=== PATIENT | female | born 1995 ===

== ENCOUNTER 2020-11-18 09:23 | Observation (INO) | payer OTHER, SELFPAY ==
[2020-11-18] VITALS (17 sets, daily range): BP systolic 118–146; BP diastolic 60–95; PULSE 96–109; BMI 35.0
[2020-11-18 11:21] LABS: Basophils Percent Auto 0.2 % (0.2-1.2); Eosinophils Absolute Auto 0.1 K/mm3 (0-0.3); Eosinophils Percent Auto 0.6 % (0-4.4); Hematocrit 38.4 % (37.0-47.0); Hemoglobin 12.8 g/dL (12.0-15.0); Immature Granulocyte Absolute 0.05 K/mm3 (0.00-0.031); Immature Granulocyte Percent A 0.5 % (0-0.5); Lymphocytes Absolute Auto 3.13 K/mm3 (0.9-3.2); Lymphocytes Percent Auto 28.8 % (18.3-44.2); Mean Corpuscular HGB Conc 33.3 g/dl (32-36); Mean Corpuscular Hemoglobin 27.9 pg (26-34); Mean Corpuscular Volume 83.8 fl (80-100); Mean Platelet Volume 11.1 fl (7.4-10.4); Monocytes Absolute Auto 0.8 K/mm3 (0.1-0.6); Monocytes Percent Auto 6.9 % (2.6-8.5); Neutrophils Absolute Auto 6.8 K/mm3 (1.3-6.7); Platelet Count Result 212 k/mm3 (150-375); Red Blood Count 4.58 M/mm3 (4.2-5.4); Red Cell Distribution Width 12.6 % (11.5-14.5); White Blood Count 10.9 K/mm3 (4.5-10.0)
--- NOTE | 2020-11-18 11:23 | OBADM ---
This patient, Theresa Hester, admitted to the OB room OB Post 117 for observation. Patient/family oriented to hospital policies and general routines including ID bracelet, bed and alarms, visiting hours, pain management, procedures, bathroom and other care routines, personal items, smoking policy, room service/diet, and visiting hours. Patient/Family are encouraged to report perceived risks to care and to ask questions if they do not understand what they are told or what they should do.
[2020-11-18 11:29] LABS: Add Urine Microscopic? YES; Appearance Urine Cloudy (Clear); Bacteria Urine Trace /hpf; Bilirubin Urine Negative (Negative); Blood Urine Negative (Negative); Color Urine Yellow (Yellow); Glucose Urine UA Negative (Negative); Ketones Urine Negative (Negative); Leukocyte Esterase Ur 1+ LEU/UL (Negative); Nitrate Urine Negative (Negative); Protein Urine 1+ mg/dL (Negative); RBC Urine 0-2 /hpf (0-2); Specific Grav Ur 1.008 (1.001-1.035); Squamous Epithelial Cell Urine Many /hpf (Few); Urobilinogen Urine Negative mg/dL (<2.0)
[2020-11-18 11:31] LABS: Alanine Aminotransferase 12 U/L (4-35); Albumin Level 3.3 g/dL (3.5-5.1); Alkaline Phosphatase 260 U/L (38-126); Anion Gap 5 mmol/L (8-16); Aspartate Amino Transferase 25 U/L (14-36); Bilirubin,Total 0.4 mg/dL (0.2-1.3); Blood Urea Nitrogen 9 mg/dL (7-17); Calcium 9.9 mg/dL (8.4-10.2); Carbon Dioxide 21 mmol/L (22-30); Chloride 107 mmol/L (98-107); Estimated CRCL calculation 87 ml/min; Estimated Glomerular Filt Rate > 60; Glucose 91 mg/dL (65-105); Potassium 4.4 mmol/L (3.4-5.0); Sodium 133 mmol/L (137-145)
[2020-11-18] MEDS: NIFEdipine 30 MG TAB.ER.24 PO (11:49)
[2020-11-18 12:41] LABS: Creatinine Urine 68.3 mg/dL; Total Protein Urine Random 38 mg/dL; Ur Ttl Prot Creatinine Ratio 0.56 mg/mg (0-0.20)
[2020-11-18 14:45] LABS: Fetal Fibronectin Negative
--- NOTE | 2020-11-22 13:43 | P.PNOB_ITS ---
OB - Triage/Final Diagnosis Visit Information Date of evaluation: 11/18/20 Reason for evaluation: other (elevated bp) Comments/Additional reasons for admission: I have assessed the risk for this patient, Theresa Hester, and determined that she would benefit from observation care. Evaluation Laboratory results: Laboratory Tests 11/18/20 11/18/20 11/18/20 11:07 11:07 11:07 WBC 10.9 H RBC 4.58 Hgb 12.8 Hct 38.4 MCV 83.8 MCH 27.9 MCHC 33.3 RDW 12.6 Plt Count 212 MPV 11.1 H Immature Gran % (Auto) 0.5 Neut % (Auto) 63.0 Lymph % (Auto) 28.8 [place] % (Auto) 6.9 Eos % (Auto) 0.6 Baso % (Auto) 0.2 Lymph # (Auto) 3.13 [place] # (Auto) 0.8 H Eos # (Auto) 0.1 Baso # (Auto) 0.0 Abs Immat Gran (auto) 0.05 H Absolute Neuts (auto) 6.8 H Absolute Nucleated RBC 0.0 Nucleated RBC % 0.0 Sodium 133 L Potassium 4.4 Chloride 107 Carbon Dioxide 21 L Anion Gap 5 L BUN 9 Creatinine 0.90 Estim Creat Clear Calc 87 Estimated GFR > 60 Glucose 91 Uric Acid 5.0 Calcium 9.9 Total Bilirubin 0.4 AST 25 ALT 12 Alkaline Phosphatase 260 H Total Protein 6.0 L Albumin 3.3 L Urine Color Yellow Urine Appearance Cloudy H Urine pH 7.0 Ur Specific [place] 1.008 Urine Protein 1+ H Urine Glucose (UA) Negative Urine Ketones Negative Ur Blood (Man) Negative Urine Nitrate Negative Urine Bilirubin Negative Urine Urobilinogen Negative Leukocyte Esterase Rfl 1+ H Urine RBC 0-2 Urine WBC 4-6 H Ur Squamous Epith Cells Many H Urine Bacteria Trace U Random Total Protein Urine Creatinine Protein/Creat Ratio 2 Fibronectin 11/18/20 11/18/20 11:07 14:16 WBC RBC Hgb Hct MCV MCH MCHC RDW Plt Count MPV Immature Gran % (Auto) Neut % (Auto) Lymph % (Auto) [place] % (Auto) Eos % (Auto) Baso % (Auto) Lymph # (Auto) [place] # (Auto) Eos # (Auto) Baso # (Auto) Abs Immat Gran (auto) Absolute Neuts (auto) Absolute Nucleated RBC Nucleated RBC % Sodium Potassium Chloride Carbon Dioxide Anion Gap BUN Creatinine Estim Creat Clear Calc Estimated GFR Glucose Uric Acid Calcium Total Bilirubin AST ALT Alkaline Phosphatase Total Protein Albumin Urine Color Urine Appearance Urine pH Ur Specific [place] Urine Protein Urine Glucose (UA) Urine Ketones Ur Blood (Man) Urine Nitrate Urine Bilirubin Urine Urobilinogen Leukoc
--- NOTE | 2020-11-25 07:24 | PM.OBTRLD ---
OB - Triage/Final Diagnosis Visit Information Date of evaluation: 11/18/20 Reason for evaluation: threatened labor Comments/Additional reasons for admission: I have assessed the risk for this patient, Theresa Hester, and determined that she would benefit from observation care. Evaluation Laboratory results: Laboratory Tests 11/18/20 11/18/20 11/18/20 11:07 11:07 11:07 WBC 10.9 H RBC 4.58 Hgb 12.8 Hct 38.4 MCV 83.8 MCH 27.9 MCHC 33.3 RDW 12.6 Plt Count 212 MPV 11.1 H Immature Gran % (Auto) 0.5 Neut % (Auto) 63.0 Lymph % (Auto) 28.8 [place] % (Auto) 6.9 Eos % (Auto) 0.6 Baso % (Auto) 0.2 Lymph # (Auto) 3.13 [place] # (Auto) 0.8 H Eos # (Auto) 0.1 Baso # (Auto) 0.0 Abs Immat Gran (auto) 0.05 H Absolute Neuts (auto) 6.8 H Absolute Nucleated RBC 0.0 Nucleated RBC % 0.0 Sodium 133 L Potassium 4.4 Chloride 107 Carbon Dioxide 21 L Anion Gap 5 L BUN 9 Creatinine 0.90 Estim Creat Clear Calc 87 Estimated GFR > 60 Glucose 91 Uric Acid 5.0 Calcium 9.9 Total Bilirubin 0.4 AST 25 ALT 12 Alkaline Phosphatase 260 H Total Protein 6.0 L Albumin 3.3 L Urine Color Yellow Urine Appearance Cloudy H Urine pH 7.0 Ur Specific [place] 1.008 Urine Protein 1+ H Urine Glucose (UA) Negative Urine Ketones Negative Ur Blood (Man) Negative Urine Nitrate Negative Urine Bilirubin Negative Urine Urobilinogen Negative Leukocyte Esterase Rfl 1+ H Urine RBC 0-2 Urine WBC 4-6 H Ur Squamous Epith Cells Many H Urine Bacteria Trace U Random Total Protein Urine Creatinine Protein/Creat Ratio 2 Fibronectin 11/18/20 11/18/20 11:07 14:16 WBC RBC Hgb Hct MCV MCH MCHC RDW Plt Count MPV Immature Gran % (Auto) Neut % (Auto) Lymph % (Auto) [place] % (Auto) Eos % (Auto) Baso % (Auto) Lymph # (Auto) [place] # (Auto) Eos # (Auto) Baso # (Auto) Abs Immat Gran (auto) Absolute Neuts (auto) Absolute Nucleated RBC Nucleated RBC % Sodium Potassium Chloride Carbon Dioxide Anion Gap BUN Creatinine Estim Creat Clear Calc Estimated GFR Glucose Uric Acid Calcium Total Bilirubin AST ALT Alkaline Phosphatase Total Protein Albumin Urine Color Urine Appearance Urine pH Ur Specific [place] Urine Protein Urine Glucose (UA) Urine Ketones Ur Blood (Man) Urine Nitrate Urine Bilirubin Urine Urobilinogen Leukocyte Esterase Rfl Urine RBC Urine WBC Ur Squamous Epith Cells Urine Bacteria U Random Total Protein 38 Urine Creatinine 68.3 Protein/Creat Ratio 2 0.56 H Fibronectin Negative
== END 2020-11-18 15:11 | disposition home or self-care (01) ==
PROVIDERS: Advanced Practice Midwife; Admitting Provider Obstetrics & Gynecology; PCP Nurse Practitioner Family; Visit Provider Obstetrics & Gynecology
DX: O16.9 Unspecified maternal hypertension, unspecified trimester (principal); Z3A.00 Weeks of gestation of pregnancy not specified
CPT/HCPCS: 36415; 80053; 81001; 82570; 82731; 84156; 84550; 85025; A9270; G0378; G0379

== ENCOUNTER 2020-11-24 00:01 | Observation (INO) | payer OTHER, SELFPAY ==
[2020-11-24 00:17] VITALS: BP 139/98; PULSE 131
[2020-11-24 00:30] VITALS: BP 142/92; PULSE 120
[2020-11-24 00:45] VITALS: BP 136/75; PULSE 120; BMI 34.7
--- NOTE | 2020-12-25 20:49 | PM.OBTRLD ---
OB - Triage/Final Diagnosis Visit Information Comments/Additional reasons for admission: I have assessed the risk for this patient, Theresa Hester, and determined that she would benefit from observation care. Final Diagnosis (1) False labor: Code(s): O47.9 - False labor, unspecified Status: Acute
== END 2020-11-24 01:17 | disposition home or self-care (01) ==
PROVIDERS: Admitting Provider Obstetrics & Gynecology; PCP Nurse Practitioner Family; Visit Provider Obstetrics & Gynecology
DX: O47.03 False labor before 37 completed weeks of gestation, third trimester (principal); Z3A.34 34 weeks gestation of pregnancy
CPT/HCPCS: G0378; G0379

== ENCOUNTER 2020-11-27 00:22 | Inpatient (IN) | payer OTHER, SELFPAY ==
[2020-11-27] VITALS (187 sets, daily range): BP systolic 102–177; BP diastolic 68–158; PULSE 91–165; RESP 16–20; TEMP 35.7–37.1; O2SAT 78–100; BMI 34.8
--- OUTSIDE RECORDS SUMMARY | 2020-11-27 00:46 | XMS_ITS | Encounter Summary ---
:1995 Author Care Team Providers Name Role Phone Jyoti Greenberg [facility] Primary Care Provider [phone] Reason for Visit OB visit OB [id number] EDC 01/04/2021 LMP 03/30/2020 Assessment and Plan Assessment Note Patient is _34__weeks . Dis cussed plan. 1. Routine care Discussion Note: None recorded.Patient educational handouts: No information available. Plan of Care Reminders Provider Appointments Nst 11/29/2020 Nst, , EQ UIP 11:30AM ? Nst 12/02/2020 Nst, , EQUI P 9:30AM ? Ob Routine 12/02/2020 Nia Th erese 10:15AM MD Anna Marie ? Nst 12/06/2020 Nst, , EQUI P 9:30AM ? Ob Routine 12/09/2020 Iraida Loyolae, 9:15AM CNM ? Nst 12/09/2020 Nst, , EQUI P 8:30AM ? Nst 12/13/2020 Nst, , EQUI P 9:30AM ? Ob Routine 12/16/2020 Iraida Vargasgle, 10:00AM CNM ? Nst 12/16/2020 Nst, , EQUI P 9:30AM ? Nst 12/20/2020 Nst, , EQUI P 9:30AM ? Ob Routine 12/23/2020 Iraida Sagrario VargasFelipe, 11:00AM CNM ? Nst 12/23/2020 Nst, , EQUI P 10:30AM ? Nst 12/27/2020 Nst, , EQUI P
--- OUTSIDE RECORDS SUMMARY | 2020-11-27 00:46 | XMS_ITS | Encounter Summary ---
:1995 Author Care Team Providers Name Role Phone Jyoti Greenberg [facility] Primary Care Provider [phone] Reason for Visit None recorded. Assessment and Plan 1. Chronic hypertension complica ting AND/OR reason for care during ? non-stress test Discussion Note: None recorded.Patient educational handouts: No information available. Plan of Care Reminders Provider Appointments Nst 11/29/2020 Nst, , EQ UIP 11:30AM ? Nst 12/02/2020 Nst, , EQUI P 9:30AM ? Ob Routine 12/02/2020 Nia Th erese 10:15AM MD Anna Marie ? Nst 12/06/2020 Nst, , EQUI P 9:30AM ? Ob Routine 12/09/2020 Iraida Wang, 9:15AM CNM ? Nst 12/09/2020 Nst, , EQUI P 8:30AM ? Nst 12/13/2020 Nst, , EQUI P 9:30AM ? Ob Routine 12/16/2020 Iraida Wang, 10:00AM CNM ? Nst 12/16/2020 Nst, , EQUI P 9:30AM ? Nst 12/20/2020 Nst, , EQUI P 9:30AM ? Ob Routine 12/23/2020 Iraida Wang, 11:00AM CNM ? Nst 12/23/2020 Nst, , EQUI P 10:30AM ? Nst 12/27/2020 Nst, , EQUI P 9:30AM ?
--- OUTSIDE RECORDS SUMMARY | 2020-11-27 00:46 | XMS_ITS | Encounter Summary ---
:1995 Author Care Team Providers Name Role Phone Jyoti Greenberg [facility] Primary Care Provider [phone] Reason for Visit None recorded. Assessment and [...]
--- OUTSIDE RECORDS SUMMARY | 2020-11-27 00:46 | XMS_ITS ---
:1995 Author Care Team Providers Name Role Phone [facility]- Primary Care Provider [phone] Allergies Code Code System Name Reaction Severity Status Onset Penicillins Hives ? Active ? 49371 RxNorm Zofran Itching ? Active ? Vomiting ? Active ? Medications Name Status Start Date Stop Date ? ? buspirone Completed ? 10/18/2020 buspirone 10 mg tablet Active ? Not avail able TAKE 1 TABLET BY MOUTH THREE TIMES DAILY freestyle mis lancets Active ? Not herminio ilable FreeStyle Lancets 28 gauge Active ? Not a vailable FreeStyle Lite Meter kit Active ? Not herminio ilable FreeStyle Lite Strips Active ? Not availa ble gabapentin Completed 08/04/2020 10/18/2020 gabapentin 300 mg capsule Active ? Not av ailable TAKE 1 CAPSULE BY MOUTH THREE TIMES DAILY Humulin N NPH U-100 Insulin Active ? Not available (isophane susp) 100 unit/mL subcutaneous hydrocodone 5 mg-acetaminophen 325 Completed ? 10/18/2020 mg tablet ibuprofen 600 mg tablet Completed ? 10/19/19 insulin aspart U-100 100 unit/mL subcutaneous solution Active ? Not available INJECT 4 UNITS UNDER THE SKIN 10 MINUTES BEFORE BREAKFAST AND D INNER insulin syringe U-100 with needle 0.3 mL 31 gauge x 5/16 Active ? Not available USE DAILY DIRECTED insulin syringe/0.3ml/30g x 5/16 Active ? Not available 30g x 5/16 0.3 ml misc insulin syringe/0.3ml/31g x 5/16 Active ?
--- OUTSIDE RECORDS SUMMARY | 2020-11-27 00:47 | XMS_ITS | Encounter Summary ---
:1995 Author Care Team Providers Name Role Phone Jyoti Greenberg [facility] Primary Care Provider [phone] Reason for Visit OB visit OB [id number] EDC 01/04/2021 LMP 03/30/2020 Assessment and Plan Assessment Note Patient is _28__weeks . Dis cussed plan. 1. Routine care Discussion Note: None recorded.Patient educational handouts: No information available. Plan of Care Reminders Provider Appointments Nst 11/29/2020 Nst, , EQ UIP 11:30AM ? Nst 12/02/2020 Nst, , EQUI P 9:30AM ? Ob Routine 12/02/2020 Nia Th erese 10:15AM MD Anna Marie ? Nst 12/06/2020 Nst, , EQUI P 9:30AM ? Ob Routine 12/09/2020 Iraida Sagrario VargasPinch, 9:15AM CNM ? Nst 12/09/2020 Nst, , EQUI P 8:30AM ? Nst 12/13/2020 Nst, , EQUI P 9:30AM ? Ob Routine 12/16/2020 Iraida Sagrario VargasPinch, 10:00AM CNM ? Nst 12/16/2020 Nst, , EQUI P 9:30AM ? Nst 12/20/2020 Nst, , EQUI P 9:30AM ? Ob Routine 12/23/2020 Iraida Sagrario Felipe, 11:00AM CNM ? Nst 12/23/2020 Nst, , EQUI P 10:30AM ? Nst 12/27/2020 Nst, , EQUI P
--- OUTSIDE RECORDS SUMMARY | 2020-11-27 00:47 | XMS_ITS | Encounter Summary ---
:1995 Author Care Team Providers Name Role Phone Jyoti Greenberg [facility] Primary Care Provider [phone] Reason for Visit None recorded. Assessment and [...]
--- OUTSIDE RECORDS SUMMARY | 2020-11-27 00:47 | XMS_ITS | Encounter Summary ---
:1995 Author Care Team Providers Name Role Phone Jyoti Greenberg [facility] Primary Care Provider [phone] Reason for Visit OB visit Assessment and Plan Assessment Note Patient is ___weeks . Discu ssed plan. 1. Routine care Discussion Note: None [...] P 9:30AM ? Ob Routine 12/16/2020 Iraida Loyolae, 10:00AM CNM ? Nst 12/16/2020 Nst, , EQUI P 9:30AM ? Nst 12/20/2020 Nst, , EQUI P 9:30AM ? Ob Routine 12/23/2020 Iraida Wang, 11:00AM CNM ? Nst 12/23/2020 Nst, , EQUI P 10:30AM ? Nst 12/27/2020 Nst, , EQUI P 9:30AM ? O
--- OUTSIDE RECORDS SUMMARY | 2020-11-27 00:47 | XMS_ITS | Encounter Summary ---
:1995 Author Care Team Providers Name Role Phone Jyoti Greenberg [facility] Primary Care Provider [phone] Reason for Visit None recorded. Assessment and [...]
--- OUTSIDE RECORDS SUMMARY | 2020-11-27 00:47 | XMS_ITS | Encounter Summary ---
:1995 Author Care Team Providers Name Role Phone Jyoti Greenberg [facility] Primary Care Provider [phone] Reason for Visit None recorded. Assessment and [...]
--- OUTSIDE RECORDS SUMMARY | 2020-11-27 00:47 | XMS_ITS | Encounter Summary ---
:1995 Author Care Team Providers Name Role Phone Jyoti Greenberg [facility]- Primary Care Provider [phone] Reason for Visit None recorded. Assessment and Plan 1. condition affecting obs tetrical care of mother ? US, obstetric, biophysical profile + non-stress test Discussion Note: None recorded.Patient educational handouts: No information available. Plan of Care Reminders Provider Appointments Nst 11/29/2020 Nst, , EQ UIP 11:30AM ? Nst 12/02/2020 Nst, , EQUI P 9:30AM ? Ob Routine 12/02/2020 Nia Th erese 10:15AM MD Anna Marie ? Nst 12/06/2020 Nst, , EQUI P 9:30AM ? Ob Routine 12/09/2020 Iraida E 9:15AM Felipe, CNM ? Nst 12/09/2020 Nst, , EQUI P 8:30AM ? Nst 12/13/2020 Nst, , EQUI P 9:30AM ? Ob Routine 12/16/2020 Iraida E 10:00AM Felipe, CNM ? Nst 12/16/2020 Nst, , EQUI P 9:30AM ? Nst 12/20/2020 Nst, , EQUI P 9:30AM ? Ob Routine 12/23/2020 Iraida E 11:00AM Felipe, CNM ? Nst 12/23/2020 Nst, , EQUI P 10:30AM
--- OUTSIDE RECORDS SUMMARY | 2020-11-27 00:47 | XMS_ITS | Encounter Summary ---
:1995 Author Care Team Providers Name Role Phone Jyoti Greenberg [facility] Primary Care Provider [phone] Reason for Visit OB visit OB [id number] EDC 01/04/2021 LMP 03/30/2020 Assessment and Plan Assessment Note Patient is ___weeks . Discu ssed plan. Discussion Note: None recorded.Patient educational handouts: No [...] P 9:30AM ? Ob Routine 12/23/2020 Iraida Loyolae, 11:00AM CNM ? Nst 12/23/2020 Nst, , EQUI P 10:30AM ? Nst 12/27/2020 Nst, , EQUI P 9:30AM ? Ob Routin
--- OUTSIDE RECORDS SUMMARY | 2020-11-27 00:48 | XMS_ITS | Encounter Summary ---
:1995 Author Care Team Providers Name Role Phone Jyoti Greenberg [facility] Primary Care Provider [phone] Reason for Visit OB visit Assessment and [...]
--- OUTSIDE RECORDS SUMMARY | 2020-11-27 00:48 | XMS_ITS | Encounter Summary ---
:1995 Author Care Team Providers Name Role Phone Jyoti Greenberg [facility] Primary Care Provider [phone] Reason for Visit OB visit OB [id number] EDC 01/04/2021 LMP 03/30/2020 Assessment and Plan Assessment Note Patient is _21__weeks . Dis cussed plan. 1. Routine care Discussion Note Additional precautionary measures w ere taken to minimize potential exposure to the Covid-19 virus during this patient?s visit, including available hand home care liaison upon arrive, temperature check and being asked a series of screening questions. All staff wore face coverings during this en counter, as well as provided additional cleaning and sanitizing of all surfaces, including countertops, pens, chairs, door handles, light switches, etc, prior to a nd following the patient?s visit. Patient educational handouts: No information available. Plan of Care Reminders Provider Appointments Nst 11/29/2020 Nst, , EQ UIP 11:30AM ? Nst 12/02/2020 Nst, , EQUI P 9:30AM ? Ob Routine 12/02/2020 Nia Cortez erese 10:15AM MD Anna Marie ? Nst 12/06/2020 Nst, , EQUI P 9:30AM ? Ob Routine 12/09/2020 Iraida Wang, 9:15AM CNM ? Nst 12/09/2020 Nst, , EQUI P 8:30AM ? Nst 12/13/2020 Nst, , EQUI P 9:30AM ? Ob Routine 12/16/2020 S
--- OUTSIDE RECORDS SUMMARY | 2020-11-27 00:48 | XMS_ITS | Encounter Summary ---
:1995 Author Care Team Providers Name Role Phone Jyoti Greenberg [facility]- Primary Care Provider [phone] Reason for Visit None recorded. Assessment and Plan 1. Reduced movement ? US, obstetric, follow-up Discussion Note: None recorded.Patient educational handouts: No [...] , EQUI P 9:30AM ? Ob Routine 12/30/2020 Iraida Wang,
[2020-11-27 01:03] LABS: Basophils Percent Auto 0.2 % (0.2-1.2); Eosinophils Absolute Auto 0.1 K/mm3 (0-0.3); Hematocrit 37.6 % (37.0-47.0); Hemoglobin 12.6 g/dL (12.0-15.0); Immature Granulocyte Absolute 0.05 K/mm3 (0.00-0.031); Immature Granulocyte Percent A 0.6 % (0-0.5); Lymphocytes Absolute Auto 3.05 K/mm3 (0.9-3.2); Mean Corpuscular HGB Conc 33.5 g/dl (32-36); Mean Corpuscular Hemoglobin 28.2 pg (26-34); Mean Corpuscular Volume 84.1 fl (80-100); Mean Platelet Volume 11.7 fl (7.4-10.4); Monocytes Absolute Auto 0.6 K/mm3 (0.1-0.6); Monocytes Percent Auto 7.4 % (2.6-8.5); Neutrophils Absolute Auto 4.2 K/mm3 (1.3-6.7); Neutrophils Percent Auto 52.8 % (45.5-73.1); Platelet Count Result 202 k/mm3 (150-375); Red Blood Count 4.47 M/mm3 (4.2-5.4); Red Cell Distribution Width 13.1 % (11.5-14.5)
[2020-11-27] MEDS: LACTATED RINGERS 1,000 ML 125 ML IV CONT ×3 (01:03→10:56)
[2020-11-27] MEDS: CLINDAMYCIN 900 MG/D5W 50 ML 900 MG/50 ML PIGGYBACK 50 MG IVPB ×2 (01:04→09:03)
--- NOTE | 2020-11-27 01:11 | LDADM ---
This patient, Theresa Hester, was admitted to Labor/Delivery/Recovery 105 on 11/27/20 at 00:22. Plans for labor, pain management and were discussed with patient. Patient/family oriented to hospital policies and general routines including ID bracelet, bed and alarms, visiting hours, pain management, procedures, bathroom and other care routines, personal items, smoking policy, room service/diet and guest tray routines, infant security routines, and visiting hours. Patient/Family are encouraged to report perceived risks to care and to ask questions if they do not understand what they are told or what they should do. See OBIX for further documentation.
[2020-11-27 01:16] LABS: Uric Acid 4.6 mg/dL (2.5-7.5)
[2020-11-27 01:18] LABS: Potassium 4.1 mmol/L (3.4-5.0)
[2020-11-27 01:26] LABS: Alanine Aminotransferase 12 U/L (4-35); Albumin Level 3.3 g/dL (3.5-5.1); Alkaline Phosphatase 284 U/L (38-126); Anion Gap 6 mmol/L (8-16); Aspartate Amino Transferase 25 U/L (14-36); Bilirubin,Total 0.2 mg/dL (0.2-1.3); Blood Urea Nitrogen 11 mg/dL (7-17); Carbon Dioxide 20 mmol/L (22-30); Chloride 107 mmol/L (98-107); Estimated Glomerular Filt Rate > 60; Glucose 108 mg/dL (65-105); Sodium 133 mmol/L (137-145)
[2020-11-27] MEDS: fentaNYL CITRATE INJ (*CRX) 100 MCG/2 ML VIAL 50 MCG IV PUSH (01:59)
--- NOTE | 2020-11-27 02:59 | WPDANESEPP ---
Anes - Eval Pre Procedure Procedure: Labor epidural Date/Time: 11/27/20 02:59 Surgeon: Clara Preop Diagnosis: Abd pain with contractions Pre Op Diagnosis: Leaking, CTX Patient Data Age: 25 Gender: F Height: 5 ft 2 in Weight: 86.4 kg Last Vital Signs Temp 98.7 F 11/27/20 01:07 Pulse 112 H 11/27/20 02:32 Resp 20 11/27/20 01:07 BP 146/102 H 11/27/20 02:32 Allergies Allergy/AdvReac Type Severity Reaction Status Date / Time Penicillins Allergy Hives Verified 11/18/20 11:51 ondansetron [From Zofran] AdvReac Nausea and Verified 11/18/20 11:51 Vomiting Home Medications Medication Instructions Recorded Confirmed Type Novolog U-100 Insulin aspart 12 unit SUBCUT QACBREAK 11/27/20 11/27/20 History Novolog U-100 Insulin aspart 12 unit SUBCUT QACLUNCH 11/27/20 11/27/20 History Novolog U-100 Insulin aspart 16 unit SUBCUT QACDINNER 11/27/20 11/27/20 History gabapentin [Neurontin] 300 mg PO TID 11/27/20 11/27/20 History insulin NPH isoph U-100 human 20 unit SUBCUT QAM 11/27/20 11/27/20 History [Humulin N NPH U-100 Insulin] insulin NPH isoph U-100 human 26 unit SUBCUT HS 11/27/20 11/27/20 History [Humulin N NPH U-100 Insulin] metoprolol succinate [Toprol XL] 50 mg PO DAILY 11/27/20 11/27/20 History venlafaxine [Effexor XR] 300 mg PO DAILY 11/27/20 11/27/20 History Laboratory Tests 11/27/20 11/27/20 11/27/20 00:57 00:57 00:57 WBC 8.0 K/mm3 K/mm3 (4.5-10.0) RBC 4.47 M/mm3 M/mm3 (4.2-5.4) Hgb 12.6 g/dL g/dL (12.0-15.0) Hct 37.6 % % (37.0-47.0) MCV 84.1 fl fl (80-100) MCH 28.2 pg pg (26-34) MCHC 33.5 g/dl g/dl (32-36) RDW 13.1 % % (11.5-14.5) Plt Count 202 k/mm3 k/mm3 (150-375) MPV 11.7 fl H fl (7.4-10.4) Immature Gran % (Auto) 0.6 % H % (0-0.5) Neut % (Auto) 52.8 % % (45.5-73.1) Lymph % (Auto) 38.0 % % (18.3-44.2) [place] % (Auto) 7.4 % % (2.6-8.5) Eos % (Auto) 1.0 % % (0-4.4) Baso % (Auto) 0.2 % % (0.2-1.2) Lymph # (Auto) 3.05 K/mm3 K/mm3 (0.9-3.2) [place] # (Auto) 0.6 K/mm3 K/mm3 (0.1-0.6) Eos # (Auto) 0.1 K/mm3 K/mm3 (0-0.3) Baso # (Auto) 0.0 K/mm3 K/mm3 (0.0-0.1) Abs Immat Gran (auto) 0.05 K/mm3 H K/mm3 (0.00-0.031) Absolute Neuts (auto) 4.2 K/mm3 K/mm3 (1.3-6.7) Absolute Nucleated RBC 0.0 K/mm3 K/mm3 (0.0-0.012) Nucleated RBC % 0.0 % % (0.0-0.2) Sodium Potassium Chloride Carbon Dioxide Anion Gap BUN Creatinine Estim Creat Clear Calc Estimated GFR Glucose Uric Acid 4.6 mg/dL mg/dL (2.5-7.5) Calcium Total Bilirubin AST ALT Alkaline Phosphatase Total Protein Albumin RPR Pending Blood Type Antibody Screen 11/27/20 11/27/20 00:57 00:57 WBC RBC Hgb Hct MCV MCH MCHC RDW Plt Count MPV Immature Gran % (Auto) Neut % (Auto) Lymph % (Auto) [place] % (Auto) Eos % (Auto) Baso % (Auto) Lymph # (Auto) [place] # (Auto) Eos # (Auto) Baso # (Auto) Abs Immat Gran (auto) Absolute Neuts (auto) Absolute Nucleated RBC Nucleated RBC % Sodium 133 mmol/L L mmol/L (137-145) Potassium 4.1 mmol/L mmol/L (3.4-5.0) Chloride 107 mmol/L mmol/L (98-107) Carbon Dioxide 20 mmol/L L mmol/L (22-30) Anion Gap 6 mmol/L L mmol/L (8-16) BUN 11 mg/dL mg/dL (7-17) Creatinine 0.90 mg/dL mg/dL (0.7-1.0) Estim Creat Tonya
[2020-11-27 05:07] LABS: Glucose Point of Care 86 (65-105)
[2020-11-27 09:08] LABS: Glucose Point of Care 62 (65-105)
[2020-11-27] MEDS: OXYTOCIN 30 UNITS/NS 500 ML 30 UNITS/500 ML BAG 999 UNITS IV CONT (12:19)
--- NOTE | 2020-11-27 13:07 | WPDOBADMIT ---
Obstetrics - Admit Note Admission Note: 25y/o G1 @ 34w4d here with spontaneous rupture of membranes. Please see for complications. Expectant management and prophylactic antibiotics. record reviewed. No pertinent additions to the history and/or any subsequent changes in the physical findings that are not consistent with the expected course of the were found. Additions to the history and/or subsequent changes in the physical findings follow. None.
--- NOTE | 2020-11-27 13:08 | P.PCNOB_ITS ---
OB - Delivery Note Procedure Delivery date: 11/27/20 events: Labor < 37 Weeks, Gestational Diabetes and Induced HTN Intrapartal events: None Induction method: none Delivery monitor: external FHT and external uterine Route of delivery: Episiotomy description: None Laceration Description: None Quantitative Blood Loss (ml): 146 Anesthesia type: Epidural Narrative: delivered and placed on maternal abdomen. Peds present. Cord gasses collected and handed off to staff. [place] Baby Date of : 11/27/20 Time of : 12:44 Weeks of gestation at delivery: 34 Infant gender: Male Weight (pounds): 6 Weight (ounces): 7 presentation: vertex position: Left Occiput Anterior Placenta delivery description: Spontaneous Narrative: Awaiting apgars from nursery staff.
[2020-11-27] MEDS: OXYTOCIN 30 UNITS/NS 500 ML 30 UNITS/500 ML BAG 125 UNITS IV CONT (13:26)
[2020-11-27] MEDS: BENZOCAINE 20% AER SPR (*SP) 56 GM CAN 1 SPRAY TOPICAL (15:31)
[2020-11-27] MEDS: WITCH HAZEL 40 PADS 1 PAD TOPICAL (15:31)
[2020-11-27] MEDS: IBUPROFEN 600 MG TABLET PO ×2 (17:00→22:26)
[2020-11-27] MEDS: GABAPENTIN 300 MG CAPSULE PO (22:27)
[2020-11-27] MEDS: VENLAFAXINE HCL XR 75 MG CAP.ER.24H 300 MG PO (22:27)
[2020-11-28 05:00] VITALS: BP 135/89; PULSE 111; RESP 16; TEMP 36; O2SAT 100
[2020-11-28] MEDS: IBUPROFEN 600 MG TABLET PO ×3 (05:01→21:12)
[2020-11-28 05:15] LABS: Hematocrit 28.8 % (37.0-47.0); Hemoglobin 9.3 g/dL (12.0-15.0)
[2020-11-28 05:18] LABS: Glucose Point of Care 95 (65-105)
[2020-11-28] MEDS: GABAPENTIN 300 MG CAPSULE PO ×3 (06:31→21:15)
[2020-11-28 07:05] VITALS: BP 138/97; PULSE 97; RESP 16; TEMP 36.6
--- NOTE | 2020-11-28 07:36 | WPDANLDPN2 ---
Anes-Prog Note L&D Date/Time: 11/28/20 07:36 Comfortable throughout: labor and delivery Neuraxial method: epidural Epidural/Spinal procedure site: clean & non-tender Neuro status: Neuro function grossly intact. Cardiovascular status: normal Respiratory status: normal Airway patency: baseline Mental status: baseline Post-Op hydration status: normal Vital Signs: Last Vital Signs Temp 36.6 C 11/28/20 07:05 Pulse 97 11/28/20 07:05 Resp 16 11/28/20 07:05 BP 138/97 H 11/28/20 07:05 Pulse Ox 100 11/28/20 05:00 Pain score (VAS): 0 I/O: Intake & Output 11/27/20 11/27/20 11/28/20 15:59 23:59 07:59 Intake Total 2049 Output Total 293 Balance 2049 - Post-procedural complaints: none Patient feedback: Patient satisfied with anesthetic care.
--- NOTE | 2020-11-28 07:40 | P.PNOB_ITS ---
OB - PN: Subj Subjective Date/time seen: 11/28/20 07:41 Patient comments: no complaints baby status: doing well OB - PN: Obj Data Labs CBC & Chem 7: 11/28/20 05:09 11/27/20 00:57 Labs: Laboratory Results - last 24 hr 11/27/20 11/28/20 11/28/20 09:01 05:09 05:15 Hgb 9.3 L D Hct 28.8 L POC Capillary Glucose 62 L 95 OB - PN A/P Plan day: 1 Plan: routine care Time Spent With Patient Time: Total time spent is greater than 50% in coordination of care (as documented) at patient's floor/unit and/or counseling patient: Time with patient: less than 15 minutes Review of Systems Review of Systems: All systems reviewed & are unremarkable except as noted in HPI and below Exam Narrative: Exam Narrative: Fundus firm and vaginal flow controlled. No lower ext redness, warmth, or edema. Negative homans. Denies h/a, v/d or e/p. Reflexes normal. Const: General: comfortable Chest: Breast/axilla inspection: normal inspection of the breasts Resp: Effort & Inspection: normal respiratory effort Cardio: Rate: regular rate GI: GI Palp: Yes Soft to palpation Psych: Appearance: grossly normal Affect: normal affect Attitude: coop erative Thought content: Yes Normal thought content present Judgement: Good judgement present (Psych)
[2020-11-28 09:50] VITALS: PULSE 97
[2020-11-28] MEDS: METOPROLOL SUCCINATE EXT REL 50 MG TABCR PO (09:50)
[2020-11-28] MEDS: DOCUSATE SODIUM 100 MG CAPSULE PO ×2 (09:50→17:27)
[2020-11-28] MEDS: MULTIVIT/MIN/PREN/FOL AC/IRON TABLET 1 TAB PO (09:50)
[2020-11-28] MEDS: POLYSACCHARIDE IRON COMPLEX 150 MG CAPSULE PO ×2 (09:50→17:28)
[2020-11-28 11:30] LABS: Rapid Plasma Reagin Non-Reactive (NonReactive)
--- NOTE | 2020-11-28 13:30 | PC.NURSE ---
Consult with pt., mother is pumping due to infant in Level II status. Reviewed breast pump care and usage, pumping schedule, nipple care, and collection and storage of breast milk. Encouraged [id number], breast massage and manual expression to stimulate supply. Assessed patient for correct flange size, placement and draw. Patient verbalizes and demonstrates understanding of instructions. Discussed and the 34 4/7 week , establishing may have its own unique set of circumstances due to their immaturity. infants may be less alert, have less stamina and may have issues with latch, suck and swallow. Reviewed mother may have to continue to pump for several days until will have the strength to empty breast.
[2020-11-28 16:24] VITALS: BP 141/93; PULSE 108; RESP 16; TEMP 36.9; O2SAT 99
[2020-11-28 16:26] VITALS: PULSE 108; RESP 16; O2SAT 99
[2020-11-28 20:07] VITALS: BP 113/73; PULSE 110; RESP 16; TEMP 37; O2SAT 96; O2SAT 99
[2020-11-28] MEDS: VENLAFAXINE HCL XR 75 MG CAP.ER.24H 300 MG PO (21:14)
[2020-11-29] MEDS: GABAPENTIN 300 MG CAPSULE PO ×3 (05:07→17:16)
[2020-11-29] MEDS: IBUPROFEN 600 MG TABLET PO ×4 (05:07→23:12)
[2020-11-29 08:00] VITALS: BP 142/98; PULSE 108; PULSE 116; RESP 18; TEMP 36.6
--- NOTE | 2020-11-29 08:10 | PM.OBPNVD ---
OB - PN: Subj Subjective Date/time seen: 11/29/20 08:10 Patient comments: no complaints baby status: doing well OB - PN: Obj Data Labs CBC & Chem 7: 11/28/20 05:09 11/27/20 00:57 Labs: Laboratory Results - last 24 hr 11/27/20 00:57 RPR Non-reactive OB - PN A/P Plan day: 2 Plan: discharge home (F/U in 1 week for bp check) Comments: Visit/exam by Hermelinda CARR. Will check cbc d/t slightly elevated maternal hr and low h&h. Await results. Pt does desire discharge home. Will await lab results. Time Spent With Patient Time: Total time spent is greater than 50% in coordination of care (as documented) at patient's floor/unit and/or counseling patient: Time with patient: less than 15 minutes Review of Systems Review of Systems: All systems reviewed & are unremarkable except as noted in HPI and below Exam Narrative: Exam Narrative: Fundus firm and vaginal flow controlled. No lower ext redness, warmth, or edema. Negative homans. Denies h/a, v/d or e/p. Reflexes normal. Const: General: comfortable Chest: Breast/axilla inspection: normal inspection of the breasts Resp: Effort & Inspection: normal respiratory effort Cardio: Rate: regular rate GI: GI Palp: Yes Soft to palpation Psych: Appearance: grossly normal Affect: normal affect Attitude: cooperative Thought content: Yes Normal thought content present Judgement: Good judgement present (Psych)
[2020-11-29 10:02] VITALS: PULSE 98
[2020-11-29] MEDS: BENZOCAINE 20% AER SPR (*SP) 56 GM CAN 1 SPRAY TOPICAL (10:02)
[2020-11-29] MEDS: METOPROLOL SUCCINATE EXT REL 50 MG TABCR PO (10:02)
[2020-11-29] MEDS: POLYSACCHARIDE IRON COMPLEX 150 MG CAPSULE PO ×2 (10:03→17:17)
[2020-11-29] MEDS: SIMETHICONE 80 MG TAB.CHEW PO (10:03)
[2020-11-29] MEDS: DOCUSATE SODIUM 100 MG CAPSULE PO ×2 (10:03→17:16)
[2020-11-29] MEDS: MULTIVIT/MIN/PREN/FOL AC/IRON TABLET 1 TAB PO (10:03)
[2020-11-29] MEDS: WITCH HAZEL 40 PADS 1 PAD TOPICAL (10:04)
[2020-11-29 10:34] LABS: Hematocrit 30.7 % (37.0-47.0); Mean Corpuscular HGB Conc 32.6 g/dl (32-36); Mean Corpuscular Hemoglobin 28.1 pg (26-34); Mean Corpuscular Volume 86.2 fl (80-100); Mean Platelet Volume 11.4 fl (7.4-10.4); Platelet Count Result 234 k/mm3 (150-375); Red Blood Count 3.56 M/mm3 (4.2-5.4); Red Cell Distribution Width 13.7 % (11.5-14.5)
[2020-11-29 12:48] VITALS: BP 136/94; PULSE 100; RESP 20; TEMP 36.8
--- NOTE | 2020-11-29 13:25 | PC.NURSE ---
Mother called out for assist with feeding. This is mother's first attempt with infant out of Level II, mother has attempted once while in Level II without success. Reviewed infant feeding cues, frequencies, duration of feedings, feeding elimination flow sheet, and signs of adequate intake. Demonstrated stimulation techniques to wake infant for feeding. Assisted with infant to breast. Reviewed positioning/alignment in cross cradle, holding breast in U hold and guided asymmetrical latch on. was eagerly rooting and able to latch correctly. nursed eagerly, with steady draws and occasional swallowing noted for short bursts and would release latch. Within a few seconds was rooting and looking make eager attempts to latch repeating bursts and releasing latch. Reviewed signs of a correct latch, effective nursing and suck swallow ratio. Reviewed infants may be less alert, have less stamina and may have issues with latch, maintaining latch, suck and swallow. With the possible inability to have a vigorous suck swallow, infants may not be adequately stimulating mother and/or able to have adequate milk transfer. Advised to continue attempt each feeding for 5-10 minutes , then follow with bottle feeding at least the same amount he was receiving in nurserly and mother will pump. Nipple care reviewed. Instructed mother to call out for RN assistance if she is unable to latch for feeding or she has discomfort with nursing. Instructed feeding should be initiated three hours from start of last feeding or if feeding cues are noted before. Mother voiced understanding of information shared.
--- NOTE | 2020-11-29 15:21 | PC.NURSE ---
Janice Sigala CNM notified of pt. bloodwork and blood pressures. Informed that pt. will be staying an additional night due to gestational hypertension.
[2020-11-29 16:00] VITALS: BP 138/92; PULSE 98; RESP 18; TEMP 36.6
[2020-11-29 18:30] VITALS: BP 148/83; PULSE 103; RESP 18; TEMP 36.7; O2SAT 99
[2020-11-29] MEDS: VENLAFAXINE HCL XR 75 MG CAP.ER.24H 300 MG PO (21:29)
[2020-11-29 23:18] VITALS: BP 136/88; PULSE 103; RESP 18; TEMP 36.9; O2SAT 99
[2020-11-30 04:10] VITALS: BP 139/80; PULSE 94; RESP 20; TEMP 36.6; O2SAT 100
[2020-11-30] MEDS: GABAPENTIN 300 MG CAPSULE PO (05:29)
[2020-11-30] MEDS: IBUPROFEN 600 MG TABLET PO ×2 (05:29→11:48)
--- NOTE | 2020-11-30 07:31 | PM.OBPNVD ---
OB - PN: Subj Subjective Date/time seen: 11/30/20 07:31 Patient comments: no complaints baby status: doing well OB - PN: Obj Data Labs CBC & Chem 7: 11/29/20 10:11 11/27/20 00:57 Labs: Laboratory Results - last 24 hr 11/29/20 10:11 WBC 12.0 H RBC 3.56 L Hgb 10.0 L Hct 30.7 L MCV 86.2 MCH 28.1 MCHC 32.6 RDW 13.7 Plt Count 234 MPV 11.4 H OB - PN A/P Plan day: 3 Plan: routine care and discharge home Comments: pt had 3 day pp course due to gestational diabetes, and HTN Time Spent With Patient Time: Total time spent is greater than 50% in coordination of care (as documented) at patient's floor/unit and/or counseling patient: Review of Systems Review of Systems: All systems reviewed & are unremarkable except as noted in HPI and below Exam Const: General: cooperative Orientation/consciousness: patient oriented x3 Limitations: no limitations Psych: Affect: normal affect Attitude: cooperative Thought process: Normal thought process present Thought content: Yes Normal thought content present Insight: Good insight present (Psych) Judgement: Good judgement present (Psych)
--- NOTE | 2020-11-30 07:35 | P.DS_ITS ---
DS: Admitting Diagnosis Admitting Diagnosis Admitting Diagnosis: HTN, PPROM< GDM OB - DS: Summary OB Procedures : None OB Procedures Intrapartum: Spontaneous Vag Delivery OB Procedures: : None Time Spent with Patient Time attestation: Total time spent providing and/or coordinating discharge services: DS: Data Data Completed and Pending Pending studies at discharge: Pending at discharge 11/27/20 12:53 Surgical [PTH] Routine Labs on day of discharge: Labs from last 24 hours 11/29/20 10:11 WBC 12.0 H RBC 3.56 L Hgb 10.0 L Hct 30.7 L MCV 86.2 MCH 28.1 MCHC 32.6 RDW 13.7 Plt Count 234 MPV 11.4 H Discharge Plan Discharge Attending physician on discharge: Libra Elizabeth Discharging Clinician: Iraida Wang Patient Disposition: Home, Self-Care Activity: pelvic rest Diet: regular Patient Instructions: Antibiotic Form Stand Alone Forms: General Discharge Information Follow-up/Referrals: Claire Sigala CNM [Certified Nurse Heavy Duty Truck Mechanic] - 1 Week Discharge Medications: Continued metoprolol succinate [Toprol XL] 50 mg tablet extended release 24 hr 50 mg PO DAILY RF: 0 venlafaxine [Effexor XR] 150 mg capsule,extended release 24hr 300 mg PO DAILY RF: 0 gabapentin [Neurontin] 300 mg capsule 300 mg PO TID RF: 0 Discontinued Humulin N NPH U-100 Insulin 100 unit/mL suspension 20 unit SUBCUT QAM RF: 0 Humulin N NPH U-100 Insulin 100 unit/mL suspension 26 unit SUBCUT HS RF: 0 Novolog U-100 Insulin aspart 16 unit subcut QACDINNER RF: 0 Novolog U-100 Insulin aspart 12 unit subcut QACBREAK RF: 0 Novolog U-100 Insulin aspart 12 unit subcut QACLUNCH RF: 0 Date of admission: 11/27/20 00:22 Primary Care Provider: Dionicio,Jyoti Admitting Provider: Libra Elizabeth Attending physician on admission: Libra Elizabeth Condition: Stable
--- NOTE | 2020-11-30 07:38 | P.DS_ITS ---
DS: Admitting Diagnosis Admitting Diagnosis Admitting Diagnosis: PPROM, GHTN,GDM OB - DS: Summary OB Procedures : None OB Procedures Intrapartum: Spontaneous Vag Delivery and Other OB Procedures: : None Time Spent with Patient Time attestation: Total time spent providing and/or coordinating discharge services: DS: Data Data Completed and Pending Pending studies at discharge: Pending at discharge 11/27/20 12:53 Surgical [PTH] Routine Labs on day of discharge: Labs from last 24 hours 11/29/20 10:11 WBC 12.0 H RBC 3.56 L Hgb 10.0 L Hct 30.7 L MCV 86.2 MCH 28.1 MCHC 32.6 RDW 13.7 Plt Count 234 MPV 11.4 H Discharge Plan Discharge Attending physician on discharge: Libra Elizabeth Discharging Clinician: Iraida Wang Patient Disposition: Home, Self-Care Activity: pelvic rest Diet: regular Patient Instructions: Antibiotic Form Stand Alone Forms: General Discharge Information Follow-up/Referrals: Claire Sigala CNM [Certified Nurse Fitter Tacker] - 1 Week Discharge Medications: Continued metoprolol succinate [Toprol XL] 50 mg tablet extended release 24 hr 50 mg PO DAILY RF: 0 venlafaxine [Effexor XR] 150 mg capsule,extended release 24hr 300 mg PO DAILY RF: 0 gabapentin [Neurontin] 300 mg capsule 300 mg PO TID RF: 0 Discontinued Humulin N NPH U-100 Insulin 100 unit/mL suspension 20 unit SUBCUT QAM RF: 0 Humulin N NPH U-100 Insulin 100 unit/mL suspension 26 unit SUBCUT HS RF: 0 Novolog U-100 Insulin aspart 16 unit subcut QACDINNER RF: 0 Novolog U-100 Insulin aspart 12 unit subcut QACBREAK RF: 0 Novolog U-100 Insulin aspart 12 unit subcut QACLUNCH RF: 0 Date of admission: 11/27/20 00:22 Primary Care Provider: Dionicio,Jyoti Admitting Provider: Libra Elizabeth Attending physician on admission: Libra Elizabeth Condition: Stable
[2020-11-30 09:15] VITALS: PULSE 72; RESP 16; O2SAT 98
[2020-11-30 10:00] VITALS: BP 129/84; PULSE 113; RESP 16; TEMP 36.8; O2SAT 98
--- NOTE | 2020-11-30 10:30 | PC.NURSE ---
Consult with pt., mother reports she has continued to attempt infant to breast for most feedings. makes attempts to latch some attempts more eager than others. Assured mother this is normal and may be a few weeks before infant is independently latching. She continues to pump every three hours, milk is now in, pumping up to 25mls the last few sessions. Reviewed to give at least 25 mls EBM/formula each feeding and increasing as desires. Mother has a double electric pump for home use and is pumping without difficulties or discomfort. Mother has many questions as to when infant may discontinue to bottle feed. Discussed should continue to be bottle feed each feeding until observed and a pre/post weight done. Mother voices understanding to all. Mother able to independently latch with appropriate positioning/alignment. She denies any nipple discomfort, is feeding as required and waking infant to feed if needed. will make eager attempts for most feedings and then supplement after, and is currently meeting outcomes for weight, output, jaundice and feeding frequencies. Mother states she feels confident to continue current feeding plan above at home. Reviewed transition to breast milk, signs of adequate intake, and engorgement/relief. Instructed to call ICP if intake/output less than required. Reviewed regular medications mother is taking. Information provided per Florina. Reviewed community resources on the [employer] website and in the Mom/Baby guide. Information on outpatient services provided. Mother has no further questions at this time.
[2020-11-30 11:47] VITALS: PULSE 72
[2020-11-30] MEDS: MULTIVIT/MIN/PREN/FOL AC/IRON TABLET 1 TAB PO (11:47)
[2020-11-30] MEDS: METOPROLOL SUCCINATE EXT REL 50 MG TABCR PO (11:47)
[2020-11-30] MEDS: POLYSACCHARIDE IRON COMPLEX 150 MG CAPSULE PO (11:48)
[2020-12-01 11:34] VITALS: BP 152/88; PULSE 112; RESP 20; TEMP 36.9; O2SAT 100
== END 2020-11-30 14:45 | disposition home or self-care (01) | DRG 807 ==
LOC: ANHLDR 02:19 → ANHOB2 17:25
PROVIDERS: Advanced Practice Midwife; Admitting Provider Obstetrics & Gynecology; PCP Nurse Practitioner Family; Visit Provider Obstetrics & Gynecology
DX: O60.14X0 Preterm labor third trimester with preterm delivery third trimester, not applicable or unspecified (principal); Z37.0 Single live birth; O24.429 Gestational diabetes mellitus in childbirth, unspecified control; O16.4 Unspecified maternal hypertension, complicating childbirth; O99.824 Streptococcus B carrier state complicating childbirth; O42.913 Preterm premature rupture of membranes, unspecified as to length of time between rupture and onset of labor, third trimester; O70.1 Second degree perineal laceration during delivery; Z3A.34 34 weeks gestation of pregnancy
CPT/HCPCS: 36415; 80053; 82948; 84112; 84550; 85014; 85018; 85025; 85027; 86592; 86850; 86900; 86901; 88307; A9270; G0378; G0379; J2590; J3010; J7120